=== PATIENT | male | born 1985 | race Caucasian/White ===

== ENCOUNTER 2016-10-21 21:43 | Emergency (ER) | payer OTHER ==
[~2016-10-21] VITALS: Ht 175.3 cm; Wt 127.0 kg
[2016-10-21 21:48] VITALS: Ht 175.3 cm; Wt 127.0 kg
[2016-10-21] MEDS ORDERED: DIPHTH/TET/ACEL PERTUSS (ADULT) 0.5 ML VIAL IM* ONE (23:30)
[2016-10-21] MEDS ORDERED: LIDOCAINE 1% (MDV) 20 ML INJ SC ONE (23:30)
--- NOTE | 2016-10-22 00:08 | ERD ---
ER Documentation Chief Complaint Date/Time DATE: 10/22/16 TIME: 00:02 Chief Complaint RIGHT INDEX FINGER LACERATION FROM WASHING DISHES HPI 31-year-old male presents in emergency department for complaints of right index finger laceration after getting caught while washing dishes today. Patient is complaining of pain sharp pain 9/10 scale, is worse upon touching the area. Patient is able to move the joint without any problems. Patient denies any numbness or tingling. Patient denies any fever or chills.Pt did not take any medications for pain. ROS All systems reviewed and are negative except as per history of present illness. Medications Home Meds Reported Medications [none] Unknown Strength No Conflict Check 10/22/16 Allergies Allergies: Coded Allergies: No Known Allergy (Unverified , 10/21/16) PMhx/Soc Medical and Surgical Hx: pt denies Medical Hx, pt denies Surgical Hx Hx Alcohol Use: No Hx Substance Use: No Hx Tobacco Use: No Smoking Status: Never smoker FmHx Family History: No coronary disease, No diabetes, No other Physical Exam Vitals Vital Signs Date Time Temp Pulse Resp B/P Pulse Ox O2 Delivery O2 Flow Rate FiO2 10/21/16 21:48 99.2 104 18 132/86 100 Physical Exam Const: [] Head: Atraumatic Eyes: Normal Conjunctiva ENT: Normal External Ears, Nose and Mouth. Neck: Full range of motion..~ No meningismus. Resp: Clear to auscultation bilaterally Cardio: Regular rate and rhythm, no murmurs Abd: Soft, non tender, non distended. Normal bowel sounds Skin: No petechiae or rashes Back: No midline or flank tenderness Ext: No cyanosis, or edema Neur: Awake and alert Psych: Normal Mood and Affect Results 24 hrs Current Medications Medications (Trade) Dose Ordered Sig/[place] Route PRN Reason Start Time Stop Time Status Last Admin Dose Admin Lidocaine (Xylocaine 1% (Mdv) 20 ml) 2 ml ONCE ONCE SC 10/21/16 23:30 10/21/16 23:31 DC Diphtheria/ Tetanus/Acell Pertussis (Adacel) 0.5 ml ONCE ONCE IM* 10/21/16 23:30 10/21/16 23:31 DC 10/21/16 23:40 Acetaminophen/ Hydrocodone Bitart (Pantego (5/325)) 1 tab ONCE ONCE PO 10/22/16 00:00 10/22/16 00:01 DC 10/21/16 23:55 Acetaminophen/ Hydrocodone Bitart (Pantego (5/325)) 1 tab ONCE ONCE PO 10/22/16 00:30 10/22/16 00:31 DC 10/22/16 00:25 Patient was given medication for pain here in emergency department, after treatment, patient verbalized feeling much better. Patient's pain is improved.Tdap was given to prevent tetanus. Patient tolerated medication well. Procedures/MDM Procedure Note: After obtaining informed consent, the wound was irrigated with 250 ml of normal saline and cleaned with diluted betadine. Using aseptic technique, 3 ml of 1% lidocaine was injected on the subcutaneous tissue of the laceration wound for anesthetic. After the anesthetic, the wound was approximated using 6 interrupted sutures of 4-0 Prolene. After the procedure, the wound was well approximated. Patient tolerated procedure well. Bacitracin was applied on the area and a dry dressing. Medical Decision Making: Patient's pain is most likely consistent with a Laceration wound on the affected area, this was repaired without any difficulty.. There is no suspicion for neurovascular compromise. Patient has intact sensation and circulation of the affected extremity. There is low suspicion for septic arthritis. Patient does not have any fever. Disposition: Home. Patient is given prescription for ibuprofen for pain, Pantego for severe pain, Keflex to prevent infection. Patient was advised to elevate the affected area and apply ice on affected area. Patient was advised that if symptoms are worse, numbness, tingling, high fever, unable to move joint, worsening symptoms, to return to emergency department immediately. Otherwise, patient is advised to follow up with the primary care doctor in 2 days for wound check. Departure Diagnosis: Primary Impression: Finger laceration Encounter type: initial encounter Finger: index finger Damage to nail status: without damage Foreign body presence: without foreign body Laterality: right Qualified Code: S61.210A - Laceration of right index finger without foreign body without damage to nail, initial encounter Condition: Stable Patient Instructions: Laceration, Hand Additional Instructions: Patient is given prescription for ibuprofen for pain, Pantego for severe pain, Keflex to prevent infection. Patient was advised to elevate the affected area and apply ice on affected area. Patient was advised that if symptoms are worse , numbness, tingling, high fever, unable to move joint, worsening symptoms, to return to emergency department immediately. Otherwise, patient is advised to follow up with the primary care doctor in 2 days for wound check. TEMITOPE ALMAZAN NP Oct 22, 2016 00:08
[2016-10-22] MEDS ORDERED: HYDROCODONE/APAP (5/325) TAB PO ONE ×2 (00:30)
[2016-10-22] MEDS ORDERED: IBUP-1542 PO ×2 (00:50→00:57)
[2016-10-22] MEDS ORDERED: CEPH-443 PO ×2 (00:50→00:57)
[2016-10-22] MEDS ORDERED: HYDR-906 PO ×2 (00:50→00:57)
[2016-10-22 01:23] VITALS: BP 120/80; PULSE 80; RESP 18; TEMP 98
== END 2016-10-22 01:29 | disposition home or self-care (01) ==
LOC: FTE 21:43
DX: S61.210A Laceration without foreign body of right index finger without damage to nail, initial encounter (principal); W23.1XXA Caught, crushed, jammed, or pinched between stationary objects, initial encounter; Y92.9 Unspecified place or not applicable; Z23 Encounter for immunization
CPT/HCPCS: 12001; 90471; 90715; Z7502; Z7610